=== PATIENT | female | born 1995 ===

== ENCOUNTER 2017-11-23 15:41 | Emergency (ER) | payer OTHER ==
[2017-11-23 16:19] VITALS: BP 100/68; O2SAT 100
--- NOTE | 2017-11-23 17:11 | C.PDOC ---
History Of Present Illness 22 y/o female presents to the ER complaining of nasal congestion and associated bilateral ear pain which has been present for 2 days. Patient states that she has been feeling like she has subjective fever during the night. She reports that she took over the counter medication Tylenol which provided mild relief. Patient denies having nausea, vomiting, diarrhea, abdominal pain, and vaginal bleeding. She also denies any recent travel. Time Seen by Provider: 11/23/17 16:16 Chief Complaint (Nursing): ENT Problem History Per: Patient History/Exam Limitations: no limitations Onset/Duration Of Symptoms: Days Current Symptoms Are (Timing): Still Present Associated Symptoms: Nasal Congestion. denies: Nausea, Vomiting, Diarrhea Recent travel outside of the [place]: No Past Medical History Reviewed: Historical Data, Nursing Documentation, Vital Signs Vital Signs: Last Vital Signs Temp 98.9 F 11/23/17 17:32 Pulse 88 11/23/17 17:32 Resp 16 11/23/17 17:32 BP 100/68 11/23/17 15:44 Pulse Ox 100 11/23/17 21:51 - Medical History PMH: No Chronic Diseases Surgical History: No Surg Hx Family History: States: No Known Family Hx - Social History Hx Alcohol Use: No Hx Substance Use: No - Immunization History Hx Tetanus Toxoid Vaccination: No Hx Influenza Vaccination: No Hx Pneumococcal Vaccination: No Review Of Systems Except As Marked, All Systems Reviewed And Found Negative. Constitutional: Positive for: Fever ENT: Positive for: Ear Pain (bilateral ear pain), Nose Congestion Gastrointestinal: Negative for: Nausea, Vomiting, Abdominal Pain, Diarrhea Genitourinary: Negative for: Vaginal Bleeding Physical Exam - Physical Exam Appears: Non-toxic, No Acute Distress Skin: Normal Color, Warm Head: Atraumatic, Normacephalic Eye(s): bilateral: Normal Inspection, PERRL Ear(s): Bilateral: Normal Nose: Normal Oral Mucosa: Moist Throat: Normal, No Erythema, No Exudate Neck: Supple Chest: Symmetrical Cardiovascular: Rhythm Regular Respiratory: Normal Breath Sounds, No Accessory Muscle Use Gastrointestinal/Abdominal: Normal Exam, Soft, No Tenderness, Other (gravid uterus) Extremity: Normal ROM Neurological/Psych: Oriented x3, Normal Speech, Normal Cognition, Normal Motor, Normal Sensation ED Course And Treatment O2 Sat by Pulse Oximetry: 100 (RA) Pulse Ox Interpretation: Normal Medical Decision Making Medical Decision Making: Plan: --Flu Swab --Tylenol 650 mg PO --Claritin 10 mg PO Influenza test is negative and the patient has normal vitals and physical exam. On re-exam, the patient reports improvement of symptoms. Lungs are CTA, heart is RRR, abdomen is soft, non-tender and patient is tolerating PO well. Follow up with the medical doctor within 1-2 days. return if worsened Disposition - Disposition Referrals: [facility] [Outside] Disposition: HOME/ ROUTINE Disposition Time: 17:00 Condition: GOOD Additional Instructions: Follow up with the medical doctor within 1-2 days. 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 - Scribe Statement The provider has reviewed the documentation as recorded by the Janeyibe Shalom Gonzalez Provider Attestation All medical record entries made by the Scribe were at my direction and personally dictated by me. I have reviewed the chart and agree that the record accurately reflects my personal performance of the history, physical exam, medical decision making, and the department course for this patient. I have also personally directed, reviewed, and agree with the discharge instructions and disposition.
[2017-11-23 17:33] VITALS: PULSE 88; RESP 16; TEMP 98.9
== END 2017-11-23 17:32 | disposition home or self-care (01) ==
LOC: C.ER 15:41
DX: J06.9 Acute upper respiratory infection, unspecified (principal)

== ENCOUNTER 2018-02-20 06:12 | Emergency (ER) | payer OTHER ==
--- NOTE | 2018-02-20 06:42 | OBHP ---
Datetime: 02/20/2018 06:39 IP Adm Impression: Term, intrauterine Admit Comment, IP Provider: mat 37=weeks came witn c/o nose bleeed at 5 . 30 am. pt went to er and was send up. c/o dec f,m from 3 am, no ctxs, vb, obhx primi pmh den merd pnv all nkda'psh den soch de ve closed a/p at 37+weeks dec fm npo/ivf cont mahesh and efm bpp cont close obse Pelvic Type - PN: Adequate Extremities - PN: Normal Abdomen - PN: Normal Back - PN: Normal Breast - PN: Normal Lungs - PN: Normal Heart - PN: Normal Thyroid - PN: Normal Neurologic - PN: Normal HEENT - PN: Normal General - PN: Normal FHR - Baseline A Provider: 130 Contraction Comments Provider: none EGA AdmitDate IP: 37.5 Vital Signs Provider: Reviewed; Within Normal Limits IP Chief Complaint: Decreased movement NICHD Variability Prov Fetus A: Moderate 6-25bpm Dilatation, Provider: 0 Effacement, Provider: 0 Station, Provider: -3 Genitourinary Exam: Normal DTRs - PN: Normal
[2018-02-20 06:43] VITALS: BMI 29.6
[2018-02-20] MEDS ORDERED: Lactated Ringer's 1,000 ML IV SCH (06:45)
[2018-02-20 08:04] LABS: SQUAMOUS EPITHIAL 19 /hpf (0-5); URINE BACTERIA OCC (<OCC); URINE BILIRUBIN NEGATIVE (NEGATIVE); URINE BLOOD NEGATIVE (NEGATIVE); URINE CLARITY Hazy (Clear); URINE COLOR Yellow (YELLOW); URINE GLUCOSE (UA) NORMAL (Normal); URINE LEUKOCYTE ESTERASE 3+ Leu/uL (Negative); URINE PROTEIN NEGATIVE (NEGATIVE); URINE UROBILINOGEN NORMAL mg/dL (0.2-1.0)
--- NOTE | 2018-02-20 09:29 | US ---
Limited obstetrical ultrasound and biophysical profile History: Decreased movements. Comparison: None available. Technique: Real-time sonography was performed through the pelvis. Findings: LMP of 06/01/2017. Estimated date of delivery by LMP of 03/08/2018. Estimated gestational age by LMP of 37 weeks and 5 days. Posterior placental position. Cephalic presentation. heart rate of 154 beats per minute. Mean ultrasound age of approximately 36 weeks 4 days. Please note this was a limited obstetrical study for viability purposes only. This was not a dedicated anatomic survey. If there is concern for anomaly, further evaluation with a dedicated anatomic survey is recommended. Biparietal diameter measures 9.2 centimeters corresponding to a gestational age of 37 weeks 4 days. Head circumference measures 32 centimeters corresponding to a gestational age of 36 weeks and 0 days. Abdominal circumference measures 32 centimeters corresponding to a gestational age of 35 weeks and 3 days. Femur length measures 7.3 centimeters corresponding to a gestational age 37 weeks and 2 days. Biophysical profile score of 8/8 with breathing, body movement, tone, and amniotic fluid noted. Impression: Limited study for viability purposes only. Please note this was not a dedicated anatomic survey and if there is concern for anomaly, correlation with a dedicated anatomic survey is recommended. Biophysical profile score of 8/8. Mean ultrasound age of approximately 36 weeks and 4 days with heart rate of 154 beats per minute. Posterior placenta. Cephalic presentation.
[2018-02-20 12:33] VITALS: BP 110/64; PULSE 78; RESP 20; TEMP 97
== END 2018-02-20 08:30 | disposition home or self-care (01) ==
LOC: C.EROB 06:12
DX: O36.8130 Decreased fetal movements, third trimester, not applicable or unspecified (principal); Z3A.37 37 weeks gestation of pregnancy
CPT/HCPCS: 76815; 76818; 81001; 99283; J7120

== ENCOUNTER 2018-03-09 07:34 | Emergency (ER) | payer OTHER ==
[2018-03-09] MEDS ORDERED: Lactated Ringer's 1,000 ML IV SCH (08:15)
--- NOTE | 2018-03-09 08:16 | OBHP ---
Datetime: 03/09/2018 08:13 IP Adm Impression: Term, intrauterine IP Chief Complaint Other: back pain Admit Comment, IP Provider: at 40+weeks came with c/o bxk pain started yeserday night going to leg, occ ctxs, no vb,+fm obhx primi pmh de med pnv all nkda psh den soch de ve ft/50/-3 a/p at 40+weels back pain ua npo/ivf cont mahesh and efm cont close obsr Pelvic Type - PN: Adequate Extremities - PN: Normal Abdomen - PN: Normal Back - PN: Normal Breast - PN: Normal Lungs - PN: Normal Heart - PN: Normal Thyroid - PN: Normal Neurologic - PN: Normal HEENT - PN: Normal General - PN: Normal FHR - Baseline A Provider: 130 Contraction Comments Provider: q1-8 EGA AdmitDate IP: 40.1 Vital Signs Provider: Reviewed; Within Normal Limits IP Chief Complaint: Uterine contractions NICHD Variability Prov Fetus A: Moderate 6-25bpm NICHD Accel Fetus A IP Provider: 15X15 FHR Category Provider Fetus A: Category I Dilatation, Provider: 1 Effacement, Provider: 50 Station, Provider: -3 Genitourinary Exam: Normal DTRs - PN: Normal
[2018-03-09 08:23] VITALS: BMI 29.7
[2018-03-09 08:55] LABS: SQUAMOUS EPITHIAL 12 /hpf (0-5); URINE BILIRUBIN NEGATIVE (NEGATIVE); URINE BLOOD NEGATIVE (NEGATIVE); URINE CLARITY Hazy (Clear); URINE COLOR Yellow (YELLOW); URINE GLUCOSE (UA) NORMAL (Normal); URINE LEUKOCYTE ESTERASE 3+ Leu/uL (Negative); URINE PROTEIN NEGATIVE (NEGATIVE); URINE UROBILINOGEN NORMAL mg/dL (0.2-1.0)
--- NOTE | 2018-03-09 09:06 | OBDCSUM ---
Datetime: 03/09/2018 09:03 Discharged to, Provider: Home Follow up at, Provider: saturday Follow up in weeks, Provider: cliinic Discharge Comment, Provider: macrobid labor ins given po hy f/u Discharge Diagnosis Prov Other: 40wek nst uti
[2018-03-09 14:51] VITALS: BP 96/63; PULSE 74; RESP 16; TEMP 97
--- NOTE | 2018-03-10 11:04 | OBHP ---
Datetime: 03/09/2018 08:13 Admit Comment, IP Provider: at 40+weeks came with c/o bxk pain started yeserday night going to leg, occ ctxs, no vb,+fm obhx primi pmh de med pnv all nkda psh den soch de ve ft/50/-3 a/p at 40+weels back pain ua npo/ivf cont mahesh and efm cont close obsr 9 am ua 3 +le pt feels better aftr ivf plan dc home mcrobid po hy cont pnv f/u in clinic in 1 day IP Hx Assessment: The History has been Reviewed and is Current EGA AdmitDate IP: 40.1
== END 2018-03-09 09:30 | disposition home or self-care (01) ==
LOC: C.EROB 07:34
DX: O23.43 Unspecified infection of urinary tract in pregnancy, third trimester (principal); Z3A.40 40 weeks gestation of pregnancy
CPT/HCPCS: 81001; 99282; J7120

== ENCOUNTER 2018-03-12 00:35 | Emergency (ER) | payer OTHER ==
--- NOTE | 2018-03-12 01:41 | OBHP ---
Datetime: 03/12/2018 01:35 IP Adm Impression: Term, intrauterine IP Admit Plan: Discharge home Admit Comment, IP Provider: 22 @40+ presents with c/o contractions since 9pm on 03/11/2018. Pt w as placed on the monitor for >30min. Tracing category 1 but with irregular contractions. SVE: fingert ip//-3. A/P: Early Labor. Plan: discharge home. Pt has induction of labor scheduled on . Breast - PN: Normal Lungs - PN: Normal Heart - PN: Normal Thyroid - PN: Normal Neurologic - PN: Normal HEENT - PN: Normal General - PN: Normal FHR - Baseline A Provider: 150 Contraction Comments Provider: irregular Gestation - Est Wks by US: 40+ EGA AdmitDate IP: 40.4 Vital Signs Provider: Reviewed; Within Normal Limits IP Chief Complaint: Uterine contractions NICHD Variability Prov Fetus A: Moderate 6-25bpm NICHD Accel Fetus A IP Provider: 15X15 FHR Category Provider Fetus A: Category I NICHD Decel Fetus A IP Provider: None Dilatation, Provider: 1 Effacement, Provider: 30 Station, Provider: -3
[2018-03-12 05:54] VITALS: BP 129/79; PULSE 88; RESP 20; TEMP 98.6
== END 2018-03-12 01:45 | disposition home or self-care (01) ==
LOC: C.EROB 00:35
DX: O47.1 False labor at or after 37 completed weeks of gestation (principal); Z3A.40 40 weeks gestation of pregnancy

== ENCOUNTER 2018-03-13 18:50 | Inpatient (IN) | payer OTHER ==
[2018-03-13] MEDS ORDERED: Penicillin G 5 Million Unit Vial IVPB ONE (19:11)
[2018-03-13] MEDS ORDERED: Oxytocin 30 UNIT 30 UNITS/500 ML BAG IV SCH (19:15)
[2018-03-13] MEDS ORDERED: Lactated Ringer's 1,000 ML IV SCH (19:15)
[2018-03-13 19:21] VITALS: BMI 29.2
[2018-03-13] MEDS: Lactated Ringer's 1,000 ML IV SCH ×2 (19:30→20:30)
[2018-03-13 20:01] LABS: BASO % 0.1 % (0.0-2.0); EOS # 0.2 K/uL (0.0-0.7); EOS % 1.1 % (0.0-4.0); LYMPH # 2.8 K/uL (1.0-4.3); LYMPH % 20.6 % (20.0-40.0); MEAN CELL VOLUME 81.6 fL (81.0-99.0); MEAN CORPUSCULAR HEMOGLOBIN 28.9 pg (27.0-31.0); MEAN CORPUSCULAR HGB CONC 35.4 g/dL (33.0-37.0); MEAN PLATELET VOLUME 9.3 fL (7.2-11.7); MONO # 1.1 K/uL (0.0-0.8); NEUT # 9.5 K/uL (1.8-7.0); NEUT % 70.2 % (50.0-75.0); NRBC % 0.5 % (0.0-2.0); RBC 4.14 Mil/uL (3.80-5.20); RED CELL DISTRIBUTION WIDTH 19.5 % (11.5-14.5); WHITE BLOOD COUNT 13.5 K/uL (4.8-10.8)
[2018-03-13] MEDS ORDERED: Oxytocin 30 UNIT 30 UNITS/500 ML BAG IV ONE (20:02)
--- NOTE | 2018-03-13 20:13 | OBADHP ---
Datetime: 03/13/2018 19:58 IP Adm Impression Other: Anemia; GBS positive Admit Comment, IP Provider: Patient seen at 1905 hours 22 y.o. , LMP 06/01/17, [place] 03/08/18, EGA 40w 5d for IOL. (+) AFM; denies LOF, VB, Ctx. La st had sexual intercourse last night. care: [facility] - noted for anemia; was on iron until 3 d ays ago. 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 Denies H/O STIs PMH: anemia PSH: denies NKDA No food allergy Meds: PNV - QD. Iron - BID; last took 3 days ago Soc Hx: denies tobacco, illicit drug or EtOH use. With FOB x 2 years; lives with him. 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 - HTN. Father alive 66 y.o. - no med issues. No known fam h/o cancer P.E.: as above. WD in NAD. Awake, alert, oriented to time, person and place. Pleasant and coopera tive Assessment: 22. y.o. P0010, 40w 5d, advanced cervical dilatation - for augmentation of labor. GBS (+) for prophylaxis. Category 1 tracing. Clinically stable. Plan: 1) Admit 2) NPO 3) Continuous EFM 4) Admission labs 5) Penicillin 6) pitocin 7) Anesthesia consult - if requested 8) Anticipate vaginal delivery Pelvic Type - PN: Adequate Extremities - PN: Normal Abdomen - PN: Normal Back - PN: Normal Breast - PN: Normal Lungs - PN: Normal Heart - PN: Normal Thyroid - PN: Not Done Neurologic - PN: Normal HEENT - PN: Normal General - PN: Normal Weight - Estimated: 3518 Presentation-Admit: Vertex FHR - Baseline A Provider: 140 Contraction Comments Provider: irregular Comments, ACOG Physical Exam: Abdomen: Gravid. Soft. Non tender in all quadrnts. Fundal height 40 cm All other systems reviewed and are negative Gestation - Est Wks by US: 40w 5d IP Hx Assessment: The History has been Reviewed and is Current Vital Signs Provider: Reviewed IP Chief Complaint: Scheduled induction of labor NICHD Variability Prov Fetus A: Moderate 6-25bpm NICHD Accel Fetus A IP Provider: 15X15 FHR Category Provider Fetus A: Category I NICHD Decel Fetus A IP Provider: None Dilatation, Provider: 5 Effacement, Provider: 50 Station, Provider: -3 to -2 Genitourinary Exam: Normal DTRs - PN: Normal EGA AdmitDate IP: 40.5 IP Adm Impression: Postterm, intrauterine ; Active labor; Intact Membranes IP Admit Plan: Admit to unit; Initiate labor augmentation protocol Datetime: 03/09/2018 08:13 IP Chief Complaint Other: back pain
[2018-03-13 20:15] LABS: ALB/GLOB RATIO 1.1 (1.0-2.1); ALBUMIN 3.9 g/dL (3.5-5.0); ALT/SGPT 12 U/L (9-52); AST/SGOT 31 U/L (14-36); BLOOD UREA NITROGEN 8 mg/dL (7-17); CALCIUM 9.7 mg/dl (8.6-10.4); GFR AFRICAN-AMERICAN > 60; GFR NON-AFRICAN AMERICAN > 60
[2018-03-13 20:22] LABS: SQUAMOUS EPITHIAL 5 /hpf (0-5); URINE BACTERIA RARE (<OCC); URINE BILIRUBIN NEGATIVE (NEGATIVE); URINE BLOOD NEGATIVE (NEGATIVE); URINE CLARITY Clear (Clear); URINE COLOR Straw (YELLOW); URINE GLUCOSE (UA) 1+ mg/dL (Normal); URINE LEUKOCYTE ESTERASE TRACE Leu/uL (Negative); URINE PROTEIN NEGATIVE (NEGATIVE); URINE UROBILINOGEN NORMAL mg/dL (0.2-1.0)
[2018-03-13] MEDS ORDERED: Fentanyl/Bupivacaine HCl 250 ML EPI ONE (22:41)
[2018-03-13] MEDS: Penicillin G Potassium 2.5 MU in Sodium Chloride 0.9% 100 ML IV SCH (23:30)
[2018-03-14] MEDS: Penicillin G Potassium 2.5 MU in Sodium Chloride 0.9% 100 ML IV SCH ×2 (03:30→07:23)
[2018-03-14] MEDS ORDERED: Oxycodone/Acetaminophen 5/325 mg Tab PO PRN (09:48)
--- NOTE | 2018-03-14 10:00 | OBDS ---
DELIVERY PERSONNEL Delivery Doctor: Aidee Gutierrez MD Hosted Services Analyst: Cristy Robbins RN Anesthesiologist: Jewel Mitchell MD MATERNAL INFORMATION Delivery Anesthesia: Epidural Medications in Delivery: pitocin 20 Estimated Blood Loss (ml): 300 Placenta Cultured: No Maternal Complications: None Provider Comments: Uncomplicated vaginal delivery of live female , MOLLY, over right mediolatera l episiotomy, 's 9/9, weight 7lb 13 oz. 's mouth and nose bulb-suctioned on perineum. Umb ilical cord doubly clamped and cut; placed on mother's abdomen. Spontaneous delivery of placents - grossly intact; 3 vessel cord Uterine exploration - uterus contracted and firm Cervix, vagina and perineum inspected - no extensions. Episiotomy repair as above. and moth er bonding - both in stable condition. LABOR SUMMARY EDC: 03/08/2018 00:00 No. Babies in Womb: 1 Attempted: No Labor Anesthesia: Epidural LABOR INFORMATION Reason for Induction: Postterm Reason for Induction Other: N/A Onset of Labor: 03/13/2018 21:47 Complete Dilatation: 03/14/2018 04:16 Oxytocin: Augmentation Group B Beta Strep: Positive (Annotations: 02/15/2018) Antibiotics # of Doses: 3 Antibiotics Time of Last Dose: 4 Steroids Given: None Reason Steroids Not Administered: Not Applicable Other Reason Not Administered: N/A MEMBRANES Membranes Rupture Method: Spontaneous Rupture of Membranes: 03/14/2018 06:33 Length of Rupture (hrs): 2.67 Amniotic Fluid Color: Clear Amniotic Fluid Amount: Small Amniotic Fluid Odor: Normal STAGES OF LABOR Stage 1 hrs: 6 Stage 1 min: 29 Stage 2 hrs: 4 Stage 2 min: 57 Stage 3 hrs: 0 Stage 3 min: 6 Total Time in Labor hrs: 11 Total Time in Labor min: 32 VAGINAL DELIVERY Episiotomy: Right Mediolateral Laceration Extension: N/A Laceration Type: None Laceration Repair: Not Applicable Laceration Repair Note: 2-0 and 3-0 chromic in routine fashion. Hemostasis assured.Patient tolerated procedure well. Initial Vag Sponge Count: 10 Final Vag Sponge Count: 10 Initial Vag Sharps Count: 2 Final Vag Sharps Count: 2 Sponge Count Correct: Yes Sharps Count Correct: Yes (Annotations: Data stored by CPN on behalf of user) Count Comment: Correct BABY A INFORMATION Delivery Date/Time: 03/14/2018 09:13 Method of Delivery: Vaginal Born in Route : No : N/A Forceps: N/A Vacuum Extraction: N/A Shoulder Dystocia : No SHOULDER DYSTOCIA BABY A Delivery Date/Time: 03/14/2018 09:13 PRESENTATION/POSITION BABY A Presentation: Cephalic Cephalic Presentation: Vertex Vertex Position: Right Occipital Anterior Breech Presentation: N/A PLACENTA INFORMATION BABY A Placenta Delivery Time : 03/14/2018 09:19 Placenta Method of Delivery: Spontaneous Placenta Status: Delivered SCORES BABY A Heart Rate 1 min: >100 bpm Resp Effort 1 min: Good Cry Reflex Irritability 1 min: Cough or Sneeze or Pulls Away Muscle Tone 1 min: Active Motion Color 1 min: Body [place], Extremities Blue SCORE 1 MIN: 9 Heart Rate 5 min: >100 bpm Resp Effort 5 min: Good Cry Reflex Irritability 5 min: Cough or Sneeze or Pulls Away Muscle Tone 5 min: Active Motion Color 5 min: Body [place], Extremities Blue SCORE 5 MIN: 9 INFORMATION BABY A Gestational Age at Delivery: 40.6 Gestational Status: Term Outcome : Liveborn Condition : Stable Infant Sex: Female IDENTIFICATION/MEDS BABY A ID Band Number: [id number] Sensor Number: [id number] WEIGHT/LENGTH BABY A Infant Birthweight (gms): 3545 Infant Weight (lb): 7 Weight (oz): 13 Length Inches: 19.50 Infant Length cms: 49.5 CORD INFORMATION BABY A No. Cord Vessels: 3 Cord Blood Taken: Yes Infant Suction: Mouth; Nose ASSESSMENT BABY A Infant Complications: None Physical Findings at Delivery: Within Normal Limits Infant Respirations: Appears Normal Electric Cell Tender/ALS Called : No Infant Care By: dr london Transferred To: Remains with Mother
[2018-03-14] MEDS: Multiple Vitamins Tab PO SCH (12:06)
[2018-03-14] MEDS: Benzocaine/Menthol 20%-0.5% Topical Spray (60 ml) TOP SCH ×2 (12:07→17:48)
[2018-03-15 07:24] LABS: BASO % 0.3 % (0.0-2.0); EOS # 0.2 K/uL (0.0-0.7); EOS % 1.7 % (0.0-4.0); HEMOGLOBIN 9.9 g/dL (11.0-16.0); LYMPH # 2.9 K/uL (1.0-4.3); LYMPH % 20.3 % (20.0-40.0); MEAN CELL VOLUME 81.9 fL (81.0-99.0); MEAN CORPUSCULAR HEMOGLOBIN 29.2 pg (27.0-31.0); MEAN CORPUSCULAR HGB CONC 35.6 g/dL (33.0-37.0); MEAN PLATELET VOLUME 9.3 fL (7.2-11.7); MONO % 6.8 % (0.0-10.0); NEUT % 70.9 % (50.0-75.0); RBC 3.38 Mil/uL (3.80-5.20); RED CELL DISTRIBUTION WIDTH 19.9 % (11.5-14.5); WHITE BLOOD COUNT 14.1 K/uL (4.8-10.8)
[2018-03-15] MEDS: Multiple Vitamins Tab PO SCH (09:47)
--- NOTE | 2018-03-15 10:47 | OBPPN ---
Datetime: 03/15/2018 10:41 PP Pain Prov: Within normal limits PP Nausea Prov: Denies PP Flatus Prov: Yes PP BM Prov: No PP Breasts Prov: Normal PP Heart Prov: Normal PP Lungs Prov: Normal PP Abdomen/Uterus Prov: Normal PP Lochia Prov: Normal PP Extremities Prov: Normal PP Progress Prov: Normal PP Impression Prov: Normal progression PP Plan Prov: Continue present management PP Progress Note Prov: s: no c/o i: ppd1 p: reinforced. for lact consult today will d/c home on
[2018-03-15 16:45] VITALS: O2SAT 100
[2018-03-16 07:37] VITALS: BP 120/78; PULSE 85
[2018-03-16] MEDS: Multiple Vitamins Tab PO SCH (09:08)
--- NOTE | 2018-03-16 09:12 | OBPPN ---
Datetime: 03/16/2018 09:09 PP Pain Prov: Within normal limits PP Nausea Prov: Denies PP Flatus Prov: Yes PP Breasts Prov: Normal PP Heart Prov: Normal PP Lungs Prov: Normal PP Abdomen/Uterus Prov: Normal PP Lochia Prov: Normal PP Extremities Prov: Normal PP Progress Note Prov: s: perineal pain decreased; no c/o p: d/c home rx feso4 , senokot, motrin f/u 6wks sitz baths Vital Signs Provider PP: Within Normal Limits
--- NOTE | 2018-03-16 09:12 | OBDCSUM ---
Datetime: 03/16/2018 07:40 Discharged to, Provider: Home Follow up at, Provider: FABIANO Disch Instr Activity: Normal activity; May Shower Disch Instr Diet: Regular Discharge Diet restrict Prov: none Discharge Instructions, Provider: Routine instructions given Discharge Diagnosis, Provider: Term Delivered Discharge Time: 03/16/2018 12:00 Follow up in weeks, Provider: 6 weeks Disch Referrals: None Discharge Instruct Comment, Prov: pp Disch Activity Restrictions: No sexual activity; Nothing in vagina - [place], tampons, douche Discharge Comment, Provider: rx feso4 , senokot, motrin f/u 6wks sitz baths continue pnv Contraception after Delivery: Undecided
[2018-03-16 14:26] VITALS: RESP 18; TEMP 98
== END 2018-03-16 10:26 | disposition home or self-care (01) | DRG 373 ==
LOC: C.EROB 18:50 → C.4D 19:20 → C.4M 03-14 11:16
PROVIDERS: ADMIT Obstetrics & Gynecology; ATTEND Obstetrics & Gynecology
PROC: 10E0XZZ Delivery of Products of Conception, External Approach (ICD-10-PCS; principal; 2018-03-14)
PROC: 0W8NXZZ Division of Female Perineum, External Approach (ICD-10-PCS; 2018-03-14)
DX: O48.0 Post-term pregnancy (principal); O99.02 Anemia complicating childbirth; O99.824 Streptococcus B carrier state complicating childbirth; Z3A.40 40 weeks gestation of pregnancy; Z37.0 Single live birth

== ENCOUNTER 2019-02-02 16:10 | Emergency (ER) | payer OTHER ==
[2019-02-02 16:37] VITALS: BMI 23.2
[2019-02-02] MEDS ORDERED: Sodium Chloride 0.9% 1,000 ML IV STA (17:36)
[2019-02-02 18:24] LABS: BASO % 0.2 % (0.0-2.0); EOS % 0.3 % (0.0-4.0); HEMOGLOBIN 11.5 g/dL (11.0-16.0); MEAN CELL VOLUME 79.5 fL (81.0-99.0); MEAN CORPUSCULAR HEMOGLOBIN 27.3 pg (27.0-31.0); MEAN CORPUSCULAR HGB CONC 34.4 g/dL (33.0-37.0); MEAN PLATELET VOLUME 8.5 fL (7.2-11.7); MONO # 0.3 K/uL (0.0-0.8); MONO % 4.9 % (0.0-10.0); NEUT # 5.1 K/uL (1.8-7.0); NEUT % 78.6 % (50.0-75.0); RBC 4.21 Mil/uL (3.80-5.20); RED CELL DISTRIBUTION WIDTH 15.4 % (11.5-14.5); WHITE BLOOD COUNT 6.5 K/uL (4.8-10.8)
[2019-02-02 18:25] LABS: HCG,QUALITATIVE URINE NEGATIVE (NEGATIVE)
[2019-02-02 18:34] LABS: SQUAMOUS EPITHIAL 1 /hpf (0-5); URINE BACTERIA OCC (<OCC); URINE BILIRUBIN NEGATIVE (NEGATIVE); URINE BLOOD 3+ (NEGATIVE); URINE CLARITY Clear (Clear); URINE COLOR Red (YELLOW); URINE GLUCOSE (UA) NORMAL (Normal); URINE LEUKOCYTE ESTERASE 1+ Leu/uL (Negative); URINE PROTEIN 1+ mg/dL (NEGATIVE); URINE UROBILINOGEN NORMAL mg/dL (0.2-1.0)
--- NOTE | 2019-02-02 18:43 | C.PDOC ---
History Of Present Illness 23 year old female presents to the emergency department with complaints of feeling lightheaded. Patient states that her period began today while she was at work at 1PM. She reports that she was feeling thirsty and got a peach Snapple, and began to feel lightheaded shortly after drinking it. Patient states that she almost passed out, and that she was able to obtain her blood pressure and heart rate at work. Her blood pressure was elevated (she does not remember how much) and her heart rate was 120bpm. Currently in the ED, patient reports "feeling a bit better" but still feeling lightheaded. Time Seen by Provider: 02/02/19 17:20 Chief Complaint (Nursing): Dizziness/Lightheaded History Per: Patient History/Exam Limitations: no limitations Onset/Duration Of Symptoms: Hrs Current Symptoms Are (Timing): Still Present Activity At Onset Of Symptoms: Walking Possible Causative Factor(s): Decreased PO Intake Past Medical History Reviewed: Historical Data, Nursing Documentation, Vital Signs Vital Signs: Last Vital Signs Temp 98.3 F 02/02/19 16:34 Pulse 81 02/02/19 17:30 Resp 16 02/02/19 17:30 BP 112/77 02/02/19 17:30 Pulse Ox 100 02/02/19 17:30 - Medical History PMH: No Chronic Diseases Surgical History: No Surg Hx - [facility] Procedures DELIVERY OF PRODUCTS OF CONCEPTION, EXTERNAL APPROACH (03/13/18) DIVISION OF FEMALE PERINEUM, EXTERNAL APPROACH (03/13/18) Family History: States: No Known Family Hx - Social History Hx Alcohol Use: Yes Hx Substance Use: No - Immunization History Hx Tetanus Toxoid Vaccination: No Hx Influenza Vaccination: No Hx Pneumococcal Vaccination: No Review Of Systems Except As Marked, All Systems Reviewed And Found Negative. Constitutional: Negative for: Fever, Chills Cardiovascular: Positive for: Light Headedness. Negative for: Chest Pain Respiratory: Negative for: Cough, Shortness of Breath Gastrointestinal: Negative for: Nausea, Vomiting, Abdominal Pain, Diarrhea Physical Exam - Physical Exam Appears: Non-toxic, No Acute Distress Skin: Normal Color, Warm, Dry Head: Atraumatic, Normacephalic Eye(s): bilateral: Normal Inspection, PERRL, EOMI Nose: Normal Oral Mucosa: Moist Neck: Normal, Supple Chest: Symmetrical, No Tenderness Cardiovascular: Rhythm Regular, No Murmur Respiratory: Normal Breath Sounds, No Rales, No Rhonchi, No Wheezing Gastrointestinal/Abdominal: Soft, No Tenderness, No Guarding, No Rebound Extremity: Normal ROM Neurological/Psych: Oriented x3, Normal Speech, Normal Cognition Gait: Steady ED Course And Treatment - Laboratory Results Result Diagrams: 02/02/19 18:16 02/02/19 18:16 Lab Results: Urine Color Red (YELLOW) 02/02/19 18:16 Urine Clarity Clear (Clear) 02/02/19 18:16 Urine pH 7.0 (5.0-8.0) 02/02/19 18:16 Ur Specific [place] 1.001 (1.003-1.030) L 02/02/19 18:16 Urine Protein 1+ mg/dL (NEGATIVE) H 02/02/19 18:16 Urine Glucose (UA) Normal mg/dL (Normal) 02/02/19 18:16 Urine Ketones Negative mg/dL (NEGATIVE) 02/02/19 18:16 Urine Blood 3+ (NEGATIVE) H 02/02/19 18:16 Urine Nitrate Negative (NEGATIVE) 02/02/19 18:16 Urine Bilirubin Negative (NEGATIVE) 02/02/19 18:16 Urine Urobilinogen Normal mg/dL (0.2-1.0) 02/02/19 18:16 Ur Leukocyte Esterase 1+ [place]/uL (Negative) H 02/02/19 18:16 Urine WBC (Auto) 4 /hpf (0-5) 02/02/19 18:16 Urine RBC (Auto) 51 /hpf (0-3) H 02/02/19 18:16 Ur Squamous Epith Cells 1 /hpf (0-5) 02/02/19 18:16 Urine Bacteria Occ (<OCC) H 02/02/19 18:16 Urine HCG, Qual Negative (NEGATIVE) 02/02/19 18:16 Urine HCG, Qual Negative (NEGATIVE) 02/02/19 18:16 O2 Sat by Pulse Oximetry: 100 (RA) Pulse Ox Interpretation: Normal Progress Note: Plan: Labs, IV Fluids. On re-evaluation patient feels better and is stable to be d/c home with PMD follow up. Disposition - Disposition Disposition: HOME/ ROUTINE Disposition Time: 18:58 Condition: IMPROVED Additional Instructions: Follow up with your PMD within 1-2 days. Return to ED if feel worse. 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 - Scribe Statement The provider has reviewed the documentation as recorded by the Scribe (Taco Fernandez) All medical record entries made by the Scribe were at my direction and personally dictated by me. I have reviewed the chart and agree that the record accurately reflects my personal performance of the history, physical exam, medical decision making, and the department course for this patient. I have also personally directed, reviewed, and agree with the discharge instructions and disposition.
[2019-02-02 18:48] LABS: ALB/GLOB RATIO 1.7 (1.0-2.1); ALBUMIN 4.5 g/dL (3.5-5.0); ALT/SGPT 11 U/L (9-52); AST/SGOT 28 U/L (14-36); BLOOD UREA NITROGEN 12 mg/dL (7-17); CALCIUM 9.1 mg/dl (8.6-10.4); GFR NON-AFRICAN AMERICAN > 60
[2019-02-02 18:57] LABS: BARBITURATES, UR NEGATIVE (NEGATIVE); BENZODIAZEPINES, UR NEGATIVE (NEGATIVE); OPIATES, UR NEGATIVE (NEGATIVE); PHENCYCLIDINE, UR NEGATIVE (NEGATIVE)
[2019-02-02 20:17] VITALS: BP 108/69; PULSE 74; RESP 20; TEMP 98
[2019-02-03 10:19] VITALS: O2SAT 100
--- NOTE | 2019-02-04 22:45 | CARD ---
APPROVED REPORT Date of service: 02/02/2019 EKG Measurement Heart [id number] [place] [id number] <Conclusion> Normal sinus rhythm with sinus arrhythmia Normal ECG
== END 2019-02-02 19:15 | disposition home or self-care (01) ==
LOC: C.ER 16:10
DX: R42 Dizziness and giddiness (principal)
CPT/HCPCS: 80053; 80324; 80345; 80346; 80349; 80353; 80358; 80361; 81001; 82948; 83992; 84703; 85025; 96360; 99285; J7030

== ENCOUNTER 2019-02-03 20:44 | Emergency (ER) | payer OTHER ==
[2019-02-03 20:44] VITALS: BMI 23.2
[2019-02-03 21:05] VITALS: BP 128/88; PULSE 84; RESP 18; TEMP 98.2; O2SAT 100
--- NOTE | 2019-02-03 23:18 | C.PDOC ---
History Of Present Illness 23 year old female presents to the ED for the second time in 2 days c/o feeling short of breath. Patient states for the past several days she has been feeling like she can't breath. Patient states her chest tight, was seen yesterday in the ED for subjective dizziness. Patient reports she has been seen multiple time in the ED but never diagnosed with anything. Patient denies fever, chills, cough, wheezing, CP, dizziness, recent immobilization, lower extremity swelling. Time Seen by Provider: 02/03/19 22:05 Chief Complaint (Nursing): Shortness Of Breath History Per: Patient History/Exam Limitations: no limitations Onset/Duration Of Symptoms: Days (2) Current Symptoms Are (Timing): Still Present Initiating Event: Other Quality: Tightness Current Respiratory Medications: See Home Med List Reports Recently: Seen In ED (02/02/19) Recent travel outside of the [place]: No Additional History Per: Patient Past Medical History Reviewed: Historical Data, Nursing Documentation, Vital Signs Vital Signs: Last Vital Signs Temp 98.2 F 02/03/19 21:02 Pulse 84 02/03/19 21:02 Resp 18 02/03/19 21:45 BP 128/88 02/03/19 21:02 Pulse Ox 100 02/03/19 21:02 - Medical History PMH: No Chronic Diseases Denies: Depression, Diabetes, HTN Surgical History: No Surg Hx - [facility] Procedures DELIVERY OF PRODUCTS OF CONCEPTION, EXTERNAL APPROACH (03/13/18) DIVISION OF FEMALE PERINEUM, EXTERNAL APPROACH (03/13/18) Family History: States: Unknown Family Hx - Social History Hx Alcohol Use: Yes Hx Substance Use: No - Immunization History Hx Tetanus Toxoid Vaccination: No Hx Influenza Vaccination: No Hx Pneumococcal Vaccination: No Review Of Systems Constitutional: Negative for: Fever, Chills Cardiovascular: Negative for: Chest Pain, Palpitations Respiratory: Positive for: Shortness of Breath. Negative for: Cough, Sputum, Wheezing Gastrointestinal: Negative for: Nausea, Vomiting, Abdominal Pain Skin: Negative for: Rash Neurological: Negative for: Weakness, Numbness, Headache, Dizziness Physical Exam - Physical Exam Appears: Non-toxic, No Acute Distress Skin: Normal Color, Warm, Dry Head: Atraumatic, Normacephalic Eye(s): bilateral: Normal Inspection Oral Mucosa: Moist Neck: Normal ROM, Supple Chest: Symmetrical Cardiovascular: Rhythm Regular Respiratory: Normal Breath Sounds, No Rales, No Rhonchi, No Wheezing Gastrointestinal/Abdominal: Soft, No Tenderness, No Guarding, No Rebound Extremity: Normal ROM, No Tenderness, No Swelling Neurological/Psych: Oriented x3, Normal Speech, Normal Cognition Gait: Steady ED Course And Treatment O2 Sat by Pulse Oximetry: 100 (On RA) Pulse Ox Interpretation: Normal Medical Decision Making Medical Decision Making: Impression: Work up for shortness of breath, low suspicion for infectious or cardiac etiology. Plan: * Labs * CXR reevaluation : Disposition - Disposition Disposition: HOME/ ROUTINE Disposition Time: 23:27 Condition: STABLE Additional Instructions: Follow up with primary medical doctor. Take Tylenol or Motrin for pain. Instructions: Chest Pain That Is Not Caused by the Heart (DC) Forms: [employer] (Vietnamese) Print Language: PERSIAN - Clinical Impression Clinical Impression: Chest discomfort - Scribe Statement The provider has reviewed the documentation as recorded by the Scribe Shaun Ramirez All medical record entries made by the Scribe were at my direction and personally dictated by me. I have reviewed the chart and agree that the record accurately reflects my personal performance of the history, physical exam, medical decision making, and the department course for this patient. I have also personally directed, reviewed, and agree with the discharge instructions and disposition.
--- NOTE | 2019-02-03 23:25 | C.PDOC ---
Time Seen by Provider: 02/03/19 22:05 Chief Complaint (Nursing): Shortness Of Breath Past Medical History Vital Signs: Last Vital Signs Temp 98.2 F 02/03/19 21:02 Pulse 84 02/03/19 21:02 Resp 18 02/03/19 21:45 BP 128/88 02/03/19 21:02 Pulse Ox 100 02/03/19 21:02 - Medical History PMH: Denies: Depression, Diabetes, HTN - [facility] Procedures DELIVERY OF PRODUCTS OF CONCEPTION, EXTERNAL APPROACH (03/13/18) DIVISION OF FEMALE PERINEUM, EXTERNAL APPROACH (03/13/18) - Social History Hx Alcohol Use: Yes Hx Substance Use: No - Immunization History Hx Tetanus Toxoid Vaccination: No Hx Influenza Vaccination: No Hx Pneumococcal Vaccination: No ED Course And Treatment O2 Sat by Pulse Oximetry: 100 Disposition - Disposition Forms: [employer] (Khmer)
--- NOTE | 2019-02-04 08:24 | RAD ---
Date of service: 02/03/2019 HISTORY: cough COMPARISON: 12/03/2016 TECHNIQUE: Chest PA and lateral FINDINGS: LUNGS: No active pulmonary disease. PLEURA: No significant pleural effusion identified. No pneumothorax apparent. CARDIOVASCULAR: No aortic atherosclerotic calcification present. Normal cardiac size. No pulmonary vascular congestion. OSSEOUS STRUCTURES: No significant abnormalities. VISUALIZED UPPER ABDOMEN: Normal. OTHER FINDINGS: None. IMPRESSION: No active disease. No interval pathology noted. Comments: No preliminary ER impression at this time.
== END 2019-02-03 23:31 | disposition home or self-care (01) ==
LOC: C.ER 20:44
DX: R07.89 Other chest pain (principal)

== ENCOUNTER 2019-02-04 22:21 | Emergency (ER) | payer OTHER ==
[2019-02-04 22:21] VITALS: BMI 23.2
--- NOTE | 2019-02-04 22:52 | C.PDOC ---
History Of Present Illness 23 year old female, 3rd visit in 3 days for episodes of intermittent SOB. Patient states when it comes she feels dizzy, nausea, legs feels heavy, and today she vomited. She was fully worked up 2 days ago with negative findings. Denies cough, fever, chest pain, abdominal pain, Hx of prolong periods of immobilization or prolonged travel. Time Seen by Provider: 02/04/19 22:37 Chief Complaint (Nursing): Shortness Of Breath History Per: Patient History/Exam Limitations: no limitations Onset/Duration Of Symptoms: Days, Intermittent Episodes Current Symptoms Are (Timing): Still Present Current Respiratory Medications: See Home Med List Associated Symptoms: Other (Dizziness, nausea, vomiting) Recent travel outside of the [place]: No Past Medical History Reviewed: Historical Data, Nursing Documentation, Vital Signs Vital Signs: Last Vital Signs Temp 97.4 F L 02/04/19 22:26 Pulse 94 H 02/04/19 22:26 Resp 16 02/04/19 22:26 BP 120/81 02/04/19 22:26 Pulse Ox 99 02/04/19 22:26 - Medical History PMH: Denies: Depression, Diabetes, HTN - [facility] Procedures DELIVERY OF PRODUCTS OF CONCEPTION, EXTERNAL APPROACH (03/13/18) DIVISION OF FEMALE PERINEUM, EXTERNAL APPROACH (03/13/18) Family History: States: Unknown Family Hx - Social History Hx Alcohol Use: Yes Hx Substance Use: No - Immunization History Hx Tetanus Toxoid Vaccination: No Hx Influenza Vaccination: No Hx Pneumococcal Vaccination: No Review Of Systems Constitutional: Negative for: Fever, Chills Cardiovascular: Negative for: Chest Pain, Palpitations Respiratory: Positive for: Shortness of Breath. Negative for: Cough Gastrointestinal: Positive for: Nausea, Vomiting Neurological: Positive for: Dizziness. Negative for: Weakness, Numbness Physical Exam - Physical Exam Appears: Non-toxic Skin: Normal Color, Warm Head: Atraumatic, Normacephalic Eye(s): bilateral: Normal Inspection Oral Mucosa: Moist Neck: Normal, Supple Chest: Symmetrical, No Tenderness Cardiovascular: Rhythm Regular Respiratory: Normal Breath Sounds, No Rales, No Rhonchi, No Wheezing Gastrointestinal/Abdominal: Soft, No Tenderness Neurological/Psych: Oriented x3, Normal Speech ED Course And Treatment - Laboratory Results Result Diagrams: 02/04/19 23:17 02/04/19 23:17 Lab Interpretation: Normal ECG: Interpreted By Me ECG Rhythm: Sinus Rhythm ECG Interpretation: Normal O2 Sat by Pulse Oximetry: 99 (Room air) Pulse Ox Interpretation: Normal Progress Note: EKG, blood work, and urinalysis ordered. Reevaluation Time: 23:34 Reassessment Condition: Improved Disposition Counseled Patient/Family Regarding: Studies Performed, Diagnosis, Need For Followup - Disposition Referrals: [facility] at [facility] [Outside] Disposition: HOME/ ROUTINE Disposition Time: 23:38 Condition: STABLE Instructions: Dizziness, Nonvertigo, (DC), Shortness of Breath (Dyspnea) (DC) Forms: [email or web address] (Italian) - Clinical Impression Clinical Impression: Dizziness, Dyspnea - Scribe Statement The provider has reviewed the documentation as recorded by the Scribjani Gaviria All medical record entries made by the Scribe were at my direction and personally dictated by me. I have reviewed the chart and agree that the record accurately reflects my personal performance of the history, physical exam, medical decision making, and the department course for this patient. I have also personally directed, reviewed, and agree with the discharge instructions and disposition.
[2019-02-04 23:20] LABS: BASO % 0.3 % (0.0-2.0); EOS # 0.2 K/uL (0.0-0.7); EOS % 3.1 % (0.0-4.0); HEMOGLOBIN 11.3 g/dL (11.0-16.0); LYMPH % 50.2 % (20.0-40.0); MEAN CELL VOLUME 79.4 fL (81.0-99.0); MEAN CORPUSCULAR HEMOGLOBIN 27.8 pg (27.0-31.0); MEAN PLATELET VOLUME 8.4 fL (7.2-11.7); MONO # 0.3 K/uL (0.0-0.8); MONO % 4.9 % (0.0-10.0); NEUT # 2.4 K/uL (1.8-7.0); NEUT % 41.5 % (50.0-75.0); RBC 4.08 Mil/uL (3.80-5.20); RED CELL DISTRIBUTION WIDTH 15.7 % (11.5-14.5); WHITE BLOOD COUNT 5.9 K/uL (4.8-10.8)
[2019-02-04 23:32] LABS: ALB/GLOB RATIO 1.7 (1.0-2.1); ALBUMIN 4.5 g/dL (3.5-5.0); ALT/SGPT 44 U/L (9-52); AST/SGOT 63 U/L (14-36); BLOOD UREA NITROGEN 11 mg/dL (7-17); CALCIUM 9.2 mg/dl (8.6-10.4); GFR NON-AFRICAN AMERICAN > 60
[2019-02-04 23:52] LABS: HCG,QUALITATIVE URINE NEGATIVE (NEGATIVE)
[2019-02-04 23:55] LABS: SQUAMOUS EPITHIAL 1 /hpf (0-5); URINE BACTERIA RARE (<OCC); URINE BILIRUBIN NEGATIVE (NEGATIVE); URINE BLOOD 2+ (NEGATIVE); URINE CLARITY Clear (Clear); URINE COLOR Yellow (YELLOW); URINE GLUCOSE (UA) NORMAL (Normal); URINE LEUKOCYTE ESTERASE NEG Leu/uL (Negative); URINE PROTEIN NEGATIVE (NEGATIVE); URINE UROBILINOGEN NORMAL mg/dL (0.2-1.0)
[2019-02-05 00:13] VITALS: BP 120/80; PULSE 88; RESP 20; TEMP 98; O2SAT 98
--- NOTE | 2019-02-08 20:31 | CARD ---
APPROVED REPORT Date of service: 02/04/2019 EKG Measurement Heart [id number] [place] [id number] <Conclusion> Normal sinus rhythm Normal ECG
== END 2019-02-05 00:11 | disposition home or self-care (01) ==
LOC: C.ER 22:21
DX: R42 Dizziness and giddiness (principal); R06.00 Dyspnea, unspecified

== ENCOUNTER 2019-04-12 11:15 | Emergency (ER) | payer OTHER ==
[2019-04-12 11:15] VITALS: BMI 23.2
[2019-04-12 11:26] VITALS: O2SAT 99
--- NOTE | 2019-04-12 13:47 | CT ---
Date of service: 04/12/2019 PROCEDURE: CT HEAD WITHOUT CONTRAST. HISTORY: dizzy COMPARISON: None available. TECHNIQUE: Axial computed tomography images were obtained through the head/brain without intravenous contrast. Radiation dose: Total exam DLP = 1204.27 mGy-cm. This CT exam was performed using one or more of the following dose reduction techniques: Automated exposure control, adjustment of the mA and/or kV according to patient size, and/or use of iterative reconstruction technique. FINDINGS: HEMORRHAGE: No intracranial hemorrhage. BRAIN: No mass effect or edema. No atrophy or chronic microvascular ischemic changes. VENTRICLES: Unremarkable. No hydrocephalus. CALVARIUM: Unremarkable. PARANASAL SINUSES: Unremarkable as visualized. No significant inflammatory changes. MASTOID AIR CELLS: Unremarkable as visualized. No inflammatory changes. OTHER FINDINGS: None. IMPRESSION: No evidence of acute intracranial hemorrhage mass effect or midline shift.
--- NOTE | 2019-04-12 14:47 | C.PDOC ---
History Of Present Illness The patient is a 23-year-old female who states she was walking in her home when she accidentally banged the left side of her face into a wall two days ago. Since then, patient has been experiencing room-spinning like dizziness and feels like there is water in her ears. She denies fever, chills, or any symptoms prior to the incident. Time Seen by Provider: 04/12/19 11:48 Chief Complaint (Nursing): Dizziness/Lightheaded History Per: Patient History/Exam Limitations: no limitations Onset/Duration Of Symptoms: Days (2) Current Symptoms Are (Timing): Still Present Past Medical History Reviewed: Historical Data, Nursing Documentation, Vital Signs Vital Signs: Last Vital Signs Temp 98.6 F 04/12/19 11:22 Pulse 79 04/12/19 11:22 Resp 16 04/12/19 11:22 BP 112/71 04/12/19 11:22 Pulse Ox 99 04/12/19 11:22 Primary Care Provider: FAMILY PROVIDER,NO - Medical History PMH: No Chronic Diseases Denies: Depression, Diabetes, HTN Surgical History: No Surg Hx - [facility] Procedures DELIVERY OF PRODUCTS OF CONCEPTION, EXTERNAL APPROACH (03/13/18) DIVISION OF FEMALE PERINEUM, EXTERNAL APPROACH (03/13/18) Family History: States: Unknown Family Hx - Social History Hx Alcohol Use: Yes Hx Substance Use: No - Immunization History Hx Tetanus Toxoid Vaccination: No Hx Influenza Vaccination: No Hx Pneumococcal Vaccination: No Review Of Systems Constitutional: Negative for: Fever, Chills Eyes: Positive for: Other (feeling of water in ears ) Neurological: Positive for: Dizziness Physical Exam - Physical Exam Appears: Non-toxic, No Acute Distress Skin: Normal Color, Warm, Dry Head: Atraumatic, Normacephalic Eye(s): bilateral: Normal Inspection, PERRL, EOMI, Other (no nystagmus ) Ear(s): Bilateral: Normal Oral Mucosa: Moist Neck: Supple Chest: Symmetrical, No Deformity, No Tenderness Cardiovascular: Rhythm Regular, No Murmur Respiratory: Normal Breath Sounds, No Rales, No Rhonchi, No Wheezing Extremity: Normal ROM, Capillary Refill (less than 2 seconds ) Neurological/Psych: Oriented x3, Normal Speech, Normal Cognition, Normal Cranial Nerves, No Cerebellar Signs, Other (normal [id number] test, MAUREEN intact ) Gait: Steady ED Course And Treatment - Laboratory Results Lab Results: Urine HCG, Qual Negative (NEGATIVE) 04/12/19 12:34 Urine HCG, Qual Negative (NEGATIVE) 04/12/19 12:34 O2 Sat by Pulse Oximetry: 99 (on RA ) Pulse Ox Interpretation: Normal - CT Scan/US CT Head Other Rad Studies (CT/US): Read By Radiologist, Radiology Report Reviewed CT/US Interpretation: Date of service: 04/12/2019. PROCEDURE: CT HEAD WITHOUT CONTRAST. HISTORY: dizzy. COMPARISON: None available. TECHNIQUE: Axial computed tomography images were obtained through the head/brain without intravenous contrast. Radiation dose: Total exam DLP = 1204.27 mGy-cm. This CT exam was performed using one or more of the following dose reduction techniques: Automated exposure control, adjustment of the mA and/or kV according to patient size, and/or use of iterative reconstruction technique. FINDINGS: HEMORRHAGE: No intracranial hemorrhage. BRAIN: No mass effect or edema. No atrophy or chronic microvascular ischemic changes. VENTRICLES: Unremarkable. No hydrocephalus. CALVARIUM: Unremarkable. PARANASAL SINUSES: Unremarkable as visualized. No significant inflammatory changes. MASTOID AIR CELLS: Unremarkable as visualized. No inflammatory changes. OTHER FINDINGS: None. IMPRESSION: No evidence of acute intracranial hemorrhage mass effect or midline shift. Medical Decision Making Medical Decision Making: Progress: CT Head ordered and reviewed, results are unremarkable. Patient with negative urine HCG. On reassessment, patient is resting comfortably, showing no signs of distress and is stable for discharge with Rx for Meclizine. Patient is advised to follow up with her PMD within 1-2 days for further evaluation. Disposition - Disposition Referrals: [facility] [Outside] Disposition: HOME/ ROUTINE Disposition Time: 14:59 Condition: GOOD Additional Instructions: [place] Meclizine solo a la hora de acostarse, ya que le da sueo; Si no est con cabrales hijo, puede tomarlo cada 6 horas. Debera tener a alguien que se quede con usted y cabrales hijo mientras se sienta as. Realice el seguimiento en [facility] lo antes posible y con el Dr. Cantu (ENT) y con el Dr. Kingsley de neurologa. Regrese a la shante de emergencias para cualquier sntoma peor Take Meclizine at bedtime only, since it makes you drowsy; if you are not with your child, can take every 6 hours. You should have someone stay with you and your child while you feel like this. Follow up at [facility] as soon as possible and with Dr Cantu (ENT) and with Dr Kingsley from neurology . Return to ER for any worse symptoms. 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 - Scribe Statement The provider has reviewed the documentation as recorded by the Scribe (Johanna Conrad) All medical record entries made by the Scribe were at my direction and personal ly dictated by me. I have reviewed the chart and agree that the record accurately reflects my personal performance of the history, physical exam, medical decision making, and the department course for this patient. I have also personally directed, reviewed, and agree with the discharge instructions and disposition.
[2019-04-12 15:05] VITALS: BP 113/76; PULSE 76; RESP 17; TEMP 98.3
== END 2019-04-12 15:08 | disposition home or self-care (01) ==
LOC: C.ER 11:15
DX: R42 Dizziness and giddiness (principal)